=== PATIENT | male | born 1970 | race Caucasian/White ===

== ENCOUNTER 2024-10-08 15:55 | Emergency (ER) | payer MEDICAID, SELFPAY ==
[2024-10-08 15:56] VITALS: BMI 26.8
[2024-10-08 16:13] VITALS: BP 119/72; PULSE 107; RESP 18; TEMP 37.6; O2SAT 97
--- NOTE | 2024-10-08 16:22 | EDNOTE_ITS ---
<Statement entered by Rosana Platt MD - 10/18/24 19:28> As co-signing physician, I was present and available for consult prn. I concur with the plan and care as documented by the midlevel provider. ED Dental RME/HPI General Chief complaint: Dental/Oral/Throat Stated complaint: SORE THROAT ON L) SIDE Time Seen by Provider: 10/08/24 16:13 Source: patient Arrival date/time: 10/08/24 15:55 54-year-old male with no known medical history presents to the emergency room with a chief complaint of a sore throat x 2 days Mode of arrival: ambulatory Limitations: no limitations Related Data Previous Rx's ?Medication ?Instructions ?Recorded ibuprofen 600 mg tablet 600 mg PO Q6H PRN pain #14 t abs 02/20/19 tamsulosin 0.4 mg capsule (Flomax) 0.4 mg PO QDAY #10 caps 02/20/19 ibuprofen 800 mg tablet 800 mg PO TID PRN pain #30 t abs 10/20/19 azithromycin 250 mg tablet See Rx Instructions PO .COM PLEX #6 10/08/24 (Zithromax Z-Cecil) tabs Allergies Allergy/AdvReac Type Severity Reaction Status Date / Time Penicillins Allergy Severe Migraine Verified 10/08/24 16:00 potassium Allergy Mild MIGRAINE Verified 10/08/24 15:59 chocolate flavor Allergy Rash Verified 10/08/24 15:59 banana AdvReac Intermediate Migraine Verified 10/08/24 15:59 Review of Systems Review of Systems Systems Reviewed: All systems reviewed, normal except as documented Constitutional Constitutional: Reports system reviewed and no additional complaints, except as documented, Denies fatigue, Denies fever(s), Denies headache(s) and Denies weakness Eyes Eyes: Reports system reviewed and no additional complaints, except as documented, Denies blurry vision and Denies change in vision ENT Ears, Nose, Mouth, and Throat: Reports system reviewed and no additional complaints, except as documented, Denies otalgia, Denies headache(s), Denies nasal congestion, Reports sore throat, Denies throat swelling and Denies vertigo Cardiovascular Cardiovascular: Reports system reviewed and no additional complaints, except as documented, Denies chest pain, Denies dyspnea and Denies dyspnea on exertion Respiratory Respiratory: Reports system reviewed and no additional complaints, except as documented, Denies chest congestion, Denies cough, Denies dyspnea, Denies dyspnea on exertion and Denies wheezing Gastrointestinal Gastrointestinal: Reports system reviewed and no additional complaints, except as documented, Denies abdominal pain, Denies cramping, Denies nausea and Denies vomiting Genitourinary Genitourinary: Reports system reviewed and no additional complaints, except as documented, Denies dysuria and Denies hematuria Musculoskeletal Musculoskeletal: Reports system reviewed and no additional complaints, except as documented and Denies back pain Integumentary/Breasts Skin/Breast: Reports system reviewed and no additional complaints, except as documented and Denies wounds Neurologic Neurologic: Reports system reviewed and no additional complaints, except as documented, Denies confusion, Denies headache(s), Denies lack of coordination, Denies vertigo and Denies weakness Psychiatric Psychiatric: Reports system reviewed and no additional complaints, except as documented, Denies anxiety, Denies confusion, Denies depression, Denies paranoia, Denies suicidal ideation and Denies tactile hallucinations Endocrine Endocrine: Reports system reviewed and no additional complaints, except as documented and Denies fatigue Hematologic/Lymphatic Hematologic/Lymphatic: Reports system reviewed and no additional complaints, except as documented and Denies lymphadenopathy Allergic/Immunologic Allergic/Immunologic: Reports system reviewed and no additional complaints, except as documented, Denies throat swelling, Denies urticaria and Denies wheezing Past Medical History Past Medical History NEUROLOGIC: Positive Cerebrovascular Accident CARDIAC: Positive Hypertension; Negative Congestive Heart Failure RESPIRATORY: Negative Chronic Obstructive Pulmonary Disease (COPD) GENITOURINARY: Negative Renal Disease ENDOCRINE: Negative Diabetes Mellitus Type 1 or Diabetes Mellitus Type 2 Social History SMOKING STATUS: Never smoker ED Exam General Limitations: Present no limitations General appearance: Present alert and in no apparent distress Head Head exam: Present atraumatic Eye Eye exam: Present normal appearance, PERRL and EOMI ENT ENT exam: Present normal exam, normal oropharynx and mucous membranes moist Expanded ENT Exam Mouth exam: Present normal external inspection and tongue normal; Absent drooling, trismus or tongue swelling Teeth exam: Present normal inspection Throat exam: Present tonsillar erythema, tonsillomegaly and tonsillar exudate; Absent R peritonsillar mass, L peritonsillar mass or muffled voice Neck Neck exam: Present normal inspection, full ROM and trachea midline Chest Chest inspection: Present normal inspection and symmetric chest wall rise Respiratory Respiratory exam: Present normal lung sounds bilaterally Cardiovascular Cardiovascular exam: Present regular rate, normal rhythm and normal heart sounds Abdominal Exam Abdominal exam: Present soft and normal bowel sounds Extremities Exam Extremities exam: Present normal inspection and full ROM Back Exam Back exam: Present normal inspection and full ROM Neurological Exam Neurological exam: Present alert, oriented X3 and CN II-XII intact Psychiatric Psychiatric exam: Present normal affect and normal mood Skin Skin exam: Present warm, dry, intact and normal color Course Quality Measures none Orders Category Date Time Status Dexamethasone Inj [Decadron Inj] Med 10/08/24 16:21 Discontinued 10 mg PO X1 ONE cefTRIAXone [Rocephin] 1,000 mg Med 10/08/24 16:19 Discontinued Lidocaine 1% 20 ml [Xylocaine 1% 20 ML] 2.1 ml IM X1 Vital Signs Vital signs: Vital Signs Temperature 99.6 F 10/08/24 16:13 Pulse Rate 107 H 10/08/24 16:13 Respiratory Rate 18 10/08/24 16:13 Blood Pressure 119/72 10/08/24 16:13 Pulse Oximetry (%) 97 10/08/24 16:13 Oxygen Delivery Method Room Air 10/08/24 16:13 Dental / Oral MDM Narrative MDM Narrative:: 54-year-old male with no known medical history presents to the emergency room with a chief complaint of a sore throat x 2 days Patient is hemodynamically stable and in no apparent distress. He is afebrile not tachypneic and his O2 saturation is 97% on room air Physical examination shows an erythemic posterior pharynx with bilateral tonsillar pillars and swollen tonsils. The findings are consistent with pharyngitis Antibiotics are sent to the patient's pharmacy Patient was discharged and educated to follow-up with primary care provider in the next 24 to 48 hours and return to the emergency room for any evidence of worsening signs or symptoms Patient data External records reviewed:: [facility] previous records Clinical information provided by:: patient Social determinants that could affect healthcare access:: none Patient has the following chronic illnesses:: No chronic illness How is presenting disease/condition affected by chronic disease/condition?: no chronic disease Evaluation data The following diagnostics were reviewed and interpreted by me:: lab results and radiology exam(s) Lab and/or radiology exams considered but not ordered:: Labs and radiology exams considered and ordered Interpretation Summary: N/A Medications / Prescriptions Medications or Prescriptions considered but not ordered:: Medication given Medication administrations:: Medication Administration History Discontinued Medications Ceftriaxone Sodium 1,000 mg/ (Lidocaine HCl 2.1 ml) 0 mg IM X1 ONE Stop: 10/08/24 16:20 Last Admin: 10/08/24 16:40 Dose: 1,000 mg Documented By: GRACE Comments: 2.1 ml lido Dexamethasone Sodium Phosphate (Dexamethasone Sod Phos Inj 10 Mg/Ml Vial) 10 mg PO X1 ONE Stop: 10/08/24 16:22 Last Admin: 10/08/24 16:41 Dose: 10 mg Documented By: KF Medication given Consultations Consultation(s) initiated? (list below): No Diagnosis Dental Differential Diagnosis: other (Upper respiratory infection/pharyngitis/tonsillitis/epiglottitis) Most likely diagnosis given after review of the tests above:: Pharyngitis Admission Indicated Admission indicated?: not indicated Admission Request Was there a request for admission?: No Disposition Plan Disposition Plan: Discharge Discharge Attestation Discharge Attestation: The patient and all family members were given an opportunity to ask questions and understood the discharge instructions. Discharge instructions specifically effects, indications for sooner follow up or return to the emergency department, and the expected course of current diagnosis. Patient condition: Stable Discharge Plan Plan Patient Disposition: HOME (Self Care) Discharge Disposition comment: Stable Prescriptions/Referrals Prescriptions/Med Rec: New azithromycin [Zithromax Z-Cecil] 250 mg tablet See Rx Instructions .ROUTE .COMPLEX Qty: 6 0RF Rx Instructions: For 250 mg dose pack: take 500 mg today (day 1), then 250 mg for 4 days (days 2-5) No Action tamsulosin [Flomax] 0.4 mg capsule 0.4 mg PO QDAY Qty: 10 0RF ibuprofen 600 mg tablet 600 mg PO Q6H PRN (Reason: pain) Qty: 14 0RF ibuprofen 800 mg tablet 800 mg PO TID PRN (Reason: pain) Qty: 30 0RF Problem List Clinical Impression: Pharyngitis Patient/Caregiver Discharge Instructions Education Materials: When You Have a Sore Throat, ED Pharyngitis, Report Pending Additional Instructions: Please follow-up with your primary care provider in the next 24 to 48 hours Antibiotics are sent to your pharmacy to help you with your strep throat For any evidence of worsening signs or symptoms return to the emergency room immediately Print Language: Italian Stand Alone Forms: [employer] Work/School Release, Patient Portal Info Letter PA/AERODYNAMICIST Supervising Physician PA/AERODYNAMICIST Supervising Physician: Dr. PLATT
[2024-10-08] MEDS: cefTRIAXone 1,000 MG, LIDOCAINE 1% 20 ML 2.1 ML IM (16:40)
[2024-10-08] MEDS: DEXAMETHASONE SOD PHOS INJ 10 MG/ML VIAL PO (16:41)
== END 2024-10-08 16:52 | disposition home or self-care (01) ==
PROVIDERS: Emergency Provider Emergency Medicine; PCP Family Medicine
DX: J02.9 Acute pharyngitis, unspecified (principal)
CPT/HCPCS: 96372; 99283; J0696; J1100; J3490

== ENCOUNTER 2024-12-15 16:50 | Emergency (ER) | payer SELFPAY ==
[2024-12-15 16:51] VITALS: BMI 27.6
[2024-12-15 17:56] VITALS: BP 139/86; PULSE 114; RESP 19; TEMP 36.8; O2SAT 99
--- NOTE | 2024-12-15 18:01 | XR_ITS ---
Examination: Shoulder,left, 3 views Technique: Shoulder AP internal rotation, AP external rotation, Y view shoulder, 3 views Exam date and time :December 15, 2024 1804 hrs. Indications: Left shoulder pain beginning 3 days ago. Findings: Moderate narrowing glenohumeral joint No shoulder fracture or dislocation Impression: Moderate narrowing glenohumeral joint.
--- NOTE | 2024-12-15 18:02 | EDRME_ITS ---
Rapid Medical Screening Exam [facility] Arrival date/time: 12/15/24 16:50 This is a 54-year-old male that comes into the emergency room with complaints of left shoulder pain. Patient states that it started out of nowhere. Patient denies any trauma. Patient states his shoulder pain starts around his scapular area and radiates to the front of his of his shoulder. Patient is been taking ibuprofen 800 mg and is not working. Patient reports history of high blood pressure. I have greeted and performed a focused initial assessment of this patient. Initial appropriate labs ordered at this time. A comprehensive ED assessment and evaluation of the patient and analysis of all test and completion of medical decision making process will be conducted by additional ED provider. Chief Complaint: Extremity Injury, Upper Time Seen by Provider: 12/15/24 17:31 Vital signs: Vital Signs Temperature 98.2 F 12/15/24 17:56 Pulse Rate 114 H 12/15/24 17:56 Respiratory Rate 19 12/15/24 17:56 Blood Pressure 139/86 H 12/15/24 17:56 Pulse Oximetry (%) 99 12/15/24 17:56 Oxygen Delivery Method Room Air 12/15/24 17:56
[2024-12-15] MEDS: ONDANSETRON ODT 4 MG TABRAP PO (18:50)
[2024-12-15] MEDS: HYDROcodone/APAP 5/325 TABLET 1 TAB PO (18:50)
--- NOTE | 2024-12-15 21:20 | PD.EDADULT ---
ED General RME/HPI General Chief complaint: Extremity Injury, Upper Stated complaint: LEFT SHOULDER PAIN FOR 3 DAYS Time Seen by Provider: 12/15/24 17:31 Arrival date/time: 12/15/24 16:50 CC: General shoulder and left upper back pain HPI onset 3 days ago. Patient felt a pinch at work, and now the pain is gotten progressively worse with numbness rating into his left arm and up into his left neck. Patient denies chest pain shortness of breath or difficulty breathing. Patient cannot find a position of comfort. Patient denies heavy overhead lifting repetitive motion fall or blunt trauma. RME / HPI RME / HPI narrative: 12/15/24 16:50 This is a 54-year-old male that comes into the emergency room with complaints of left shoulder pain. Patient states that it started out of nowhere. Patient denies any trauma. Patient states his shoulder pain starts around his scapular area and radiates to the front of his of his shoulder. Patient is been taking ibuprofen 800 mg and is not working. Patient reports history of high blood pressure. I have greeted and performed a focused initial assessment of this patient. Initial appropriate labs ordered at this time. A comprehensive ED assessment and evaluation of the patient and analysis of all test and completion of medical decision making process will be conducted by additional ED provider. Related Data Previous Rx's ?Medication ?Instructions ?Recorded ibuprofen 600 mg tablet 600 mg PO Q6H PRN pain #14 tabs 02/20/19 tamsulosin 0.4 mg capsule (Flomax) 0.4 mg PO QDAY #10 caps 02/20/19 ibuprofen 800 mg tablet 800 mg PO TID PRN pain #30 tabs 10/20/19 azithromycin 250 mg tablet See Rx Instructions PO .COMPLEX #6 10/08/24 (Zithromax Z-Cecil) tabs cyclobenzaprine 10 mg tablet 10 mg PO HS PRN muscle spasm #14 12/15/24 tabs meloxicam 7.5 mg tablet 7.5 mg PO QDAY #10 tabs 12/15/24 Allergies Allergy/AdvReac Type Severity Reaction Status Date / Time chocolate flavor Allergy Severe Rash Verified 12/15/24 16:53 Penicillins Allergy Severe Migraine Verified 12/15/24 16:53 potassium Allergy Severe MIGRAINE Verified 12/15/24 16:53 banana AdvReac Severe Migraine Verified 12/15/24 16:53 Review of Systems Review of Systems Narrative Review of Systems: GEN: No fever, no chills, no weight loss EYES: No discharge, no visual changes, no pain HEENT: No ear pain, no congestion, no sore throat PULM: No shortness of breath, no cough, no congestion CV: No chest pain, no dyspnea on exertion, no palpitations GI: No nausea, no vomiting, no diarrhea, no pain, no constipation : No frequency, no urgency, no dysuria MUSC/SKEL: + joint pain, no back pain SKIN: No rash PSYCH: No hallucinations, no depression HEME/LYMPH: No easy bleeding or bruising tendencies NEURO: No weakness, no headache Past Medical History Past Medical History NEUROLOGIC: Positive Cerebrovascular Accident CARDIAC: Positive Hypertension; Negative Congestive Heart Failure RESPIRATORY: Negative Chronic Obstructive Pulmonary Disease (COPD) GENITOURINARY: Negative Renal Disease ENDOCRINE: Negative Diabetes Mellitus Type 1 or Diabetes Mellitus Type 2 Social History SMOKING STATUS: Never smoker ED Exam Narrative Physical exam: [General: In mild discomfort but not in any acute distress Head normocephalic HEENT: Eyes pupils are PERRLA EOMs are intact mouth pink moist membranes uvula is midline swallow symmetrical within acceptable limits Neck is supple nontender Chest equal chest rise nontender to palpation Respiratory: Clear to auscultation no wheezes crackles or rubs CV: Rate rhythm is regular no murmurs rubs or clicks Abdomen is soft nontender no masses positive bowel sounds all 4 quadrants Back: Left upper back, no tenderness with palpation the paraspinal or over the scapular border. No spinous process tenderness and of the cervical spine. Muscles are tense, and painful when significant pressure is applied. No CVA tenderness no spinous process tenderness from cervical spine thoracic and lumbar spine Skin: Intact no petechiae rash induration ulceration or crepitus Extremities: Moving all extremity against resistance cap refill less than 2 seconds neurosensory intact Neuro: Awake alert oriented x3 Glascow coma 15 no focal deficits] Course Quality Measures none Orders Category Date Time Status XR shoulder LT min 2V Stat Exams 12/15/24 18:01 Completed CYCLObenzaPRINE [Flexeril] Med 12/15/24 18:01 Discontinued 5 mg PO X1 ONE HYDROcodone*/APAP 5/325 [[place] 5/325] Med 12/15/24 18:01 Discontinued 1 tab PO X1 ONE Ibuprofen Tab [Motrin Tab] Med 12/15/24 18:01 Discontinued 800 mg PO X1 ONE Ondansetron Odt [Zofran Odt] Med 12/15/24 18:01 Discontinued 4 mg PO X1 ONE Vital Signs Vital signs: Vital Signs Temperature 98.2 F 12/15/24 17:56 Pulse Rate 114 H 12/15/24 17:56 Respiratory Rate 19 12/15/24 17:56 Blood Pressure 139/86 H 12/15/24 17:56 Pulse Oximetry (%) 99 12/15/24 17:56 Oxygen Delivery Method Room Air 12/15/24 17:56 Discharge Plan Plan Patient Disposition: HOME (Self Care) Patient condition on transfer: Stable Prescriptions/Referrals Prescriptions/Med Rec: New cyclobenzaprine 10 mg tablet 10 mg PO HS PRN (Reason: muscle spasm) Qty: 14 0RF meloxicam 7.5 mg tablet 7.5 mg PO QDAY Qty: 10 0RF No Action tamsulosin [Flomax] 0.4 mg capsule 0.4 mg PO QDAY Qty: 10 0RF ibuprofen 600 mg tablet 600 mg PO Q6H PRN (Reason: pain) Qty: 14 0RF ibuprofen 800 mg tablet 800 mg PO TID PRN (Reason: pain) Qty: 30 0RF azithromycin [Zithromax Z-Cecil] 250 mg tablet See Rx Instructions .ROUTE .COMPLEX Qty: 6 0RF Rx Instructions: For 250 mg dose pack: take 500 mg today (day 1), then 250 mg for 4 days (days 2-5) Referrals: Hunter Oglesby MD [Primary Care Provider, Family Practice] - In 1 week Daniel Barclay MD [Physician, Orthopedics] - In 1 week Problem List Clinical Impression: Left shoulder pain, Arm paresthesia, left Patient/Caregiver Discharge Instructions Education Materials: ED Shoulder Pain, Uncertain Cause Print Language: Citizen [place] Stand Alone Forms: [employer] Patient Portal Info Letter, Work/School Release PA/ADDICTION PROFESSIONAL Supervising Physician PA/ADDICTION PROFESSIONAL Supervising Physician: Robi Stokes ENP [facility] Clinical Information Provided by patient [place] [facility] [place]s/Rx Considered, not Ordered None Labs/Rad/Tests considered, not Ordered None Chronic Illness/Social Conditions which may negatively complicate care or outcome(s)-explain: None or not applicable EKG EKG not done Lab Interpretation Labs: none Imaging Provider imaging interpretation(s): X-ray of the shoulder shows mild joint space narrowing Medication Administration(s) Medication Administration History Discontinued Medications Hydrocodone Bitart/Acetaminophen (Hydrocodone/Apap 5/325 Tablet) 1 tab PO X1 ONE Stop: 12/15/24 18:02 Last Admin: 12/15/24 18:50 Dose: 1 tab Documented By: ANETTE Cyclobenzaprine HCl (Cyclobenzaprine 5 Mg Tablet) 5 mg PO X1 ONE Stop: 12/15/24 18:02 Last Admin: 12/15/24 18:50 Dose: 5 mg Documented By: ANETTE Ibuprofen (Ibuprofen Tab 400 Mg Tablet) 800 mg PO X1 ONE Stop: 12/15/24 18:02 Last Admin: 12/15/24 21:13 Dose: Not Given Documented By: CVL Non-Admin Reason: Other, see note Ondansetron HCl (Ondansetron Odt 4 Mg Tabrap) 4 mg PO X1 ONE; Protocol Stop: 12/15/24 18:02 Last Admin: 12/15/24 18:50 Dose: 4 mg Documented By: ANETTE I suspect this is muscle impingement on the spinal accessory nerves, I do not feel this is cardiac in nature, there is an abrupt onset after a brief pain while at work 3 days ago. Patient will be discharged home on pain medications and muscle relaxers and if there is a worsening of symptoms he can follow-up with his PCP or the orthopod listed on the discharge summary or return to the emergency room for reevaluation. Diagnosis Differential diagnosis: Nerve impingement, paresthesias, upper back pain Dispositon Disposition: Discharge Home
[2024-12-15 21:28] VITALS: RESP 16
== END 2024-12-15 21:29 | disposition home or self-care (01) ==
PROVIDERS: Emergency Provider Emergency Medicine; PCP Family Medicine
DX: R20.2 Paresthesia of skin (principal); M25.512 Pain in left shoulder
CPT/HCPCS: 73030; 99283; Q0162; A9270